=== PATIENT | female | born 1980 | race Caucasian/White ===

== ENCOUNTER 2018-10-23 05:30 | Day surgery (SDC) | payer BC, OTHER ==
[~2018-10-23] VITALS: Ht 144.8 cm; Wt 62.5 kg
[2018-10-23 06:29] VITALS: BP 108/65
[2018-10-23 06:47] VITALS: BP 108/65
[2018-10-23] MEDS ORDERED: EPINEPHRINE 1 MG/ML, 1ML ONE (06:48)
[2018-10-23] MEDS ORDERED: NEOMY/POLYMYXIN B GU IRR. 1 ML ONE (06:48)
[2018-10-23] MEDS ORDERED: BUPIVACAINE/PF 0.25% ONE ×2 (06:48→07:50)
[2018-10-23] MEDS ORDERED: NONE PER PT (06:53)
[2018-10-23 07:12] LABS: HCG UR SG 1.021 (1.003-1.030)
[2018-10-23] MEDS ORDERED: FENTANYL PF 100 MCG/2ML ONE ×2 (07:27→09:48)
[2018-10-23] MEDS ORDERED: MIDAZOLAM 1 MG/ML, 2ML ONE (07:28)
[2018-10-23] MEDS ORDERED: DEXAMETHASONE 4 MG/ML, 1ML ONE (07:30)
[2018-10-23] MEDS ORDERED: ROCURONIUM 10MG/ML,5ML ONE (07:30)
[2018-10-23] MEDS ORDERED: ONDANSETRON 2MG/ML, 2ML ONE (07:30)
[2018-10-23] MEDS ORDERED: METOCLOPRAMIDE 5 MG/ML, 2ML ONE (07:30)
[2018-10-23] MEDS ORDERED: CEFAZOLIN 1,000 MG ONE (07:30)
[2018-10-23] MEDS ORDERED: SUCCINYLCHOLINE 20 MG/ML, 10ML ONE (07:30)
[2018-10-23] MEDS ORDERED: PROPOFOL 10 MG/ML, 20ML ONE (07:30)
[2018-10-23] MEDS ORDERED: ACETAMINOPHEN 650 MG/20.3 ML UDC ONE (09:47)
[2018-10-23] MEDS ORDERED: OXYcodone 5 MG/5 ML ORAL.SOL UDC ONE (09:48)
[2018-10-23] MEDS ORDERED: ACETAMINOPHEN 650 MG/20.3 ML UDC PO PRN (10:00)
[2018-10-23] MEDS ORDERED: MIDAZOLAM 1 MG/ML, 2ML IV PRN (10:00)
[2018-10-23] MEDS ORDERED: HYDROmorphone 2 MG/ML, 1ML IV PRN (10:00)
[2018-10-23] MEDS ORDERED: ONDANSETRON 2MG/ML, 2ML IVPush PRN (10:00)
[2018-10-23] MEDS ORDERED: FENTANYL PF 100 MCG/2ML IV PRN (10:00)
[2018-10-23] MEDS ORDERED: LABETALOL 5MG/ML, 20ML IV PRN (10:00)
[2018-10-23] MEDS ORDERED: MEPERIDINE/PF 25MG/0.5ML IVPush PRN (10:00)
[2018-10-23] MEDS ORDERED: OXYcodone 5 MG/5 ML ORAL.SOL UDC PO PRN (10:00)
[2018-10-23] MEDS ORDERED: MEPERIDINE/PF 25MG/ML,1ML ONE (10:17)
[2018-10-23] MEDS ORDERED: KETOROLAC 30 MG/1 ML ONE (11:01)
[2018-10-23] MEDS ORDERED: HYDROcodone/APAP 5/325 TABLET PO PRN (13:00)
== END 2018-10-23 16:45 | disposition home or self-care (01) ==
LOC: OR 05:30 → OUT 16:45
PROVIDERS: ATTEND Obstetrics & Gynecology Female Pelvic Medicine and Reconstructive Surgery
DX: D25.9 Leiomyoma of uterus, unspecified (principal); N92.1 Excessive and frequent menstruation with irregular cycle; N39.46 Mixed incontinence; N88.8 Other specified noninflammatory disorders of cervix uteri; N83.8 Other noninflammatory disorders of ovary, fallopian tube and broad ligament; N94.6 Dysmenorrhea, unspecified; N81.89 Other female genital prolapse; N32.81 Overactive bladder; D64.9 Anemia, unspecified; J45.909 Unspecified asthma, uncomplicated
CPT/HCPCS: 57265; 57282; 57288; 58552; 81025; 88307; C1771; J0171; J0330; J0690; J1100; J2175; J2250; J2405; J2704; J2765; J3010; J3490